=== PATIENT | female | born 2000 | race Asian ===

== ENCOUNTER 2020-07-19 15:09 | Emergency (ER) | payer OTHER ==
[~2020-07-19] VITALS: Ht 154.9 cm; Wt 57.2 kg
[2020-07-19] MEDS ORDERED: KETOROLAC 30 MG/1 ML ONE (15:47)
[2020-07-19] MEDS ORDERED: METOCLOPRAMIDE 5 MG/ML, 2ML ONE (15:47)
[2020-07-19] MEDS ORDERED: DIPHENHYDRAMINE 50 MG/ML, 1ML ONE (15:48)
[2020-07-19] MEDS ORDERED: DIPHENHYDRAMINE 50 MG/ML, 1ML IVPush ONE (16:00)
[2020-07-19] MEDS ORDERED: METOCLOPRAMIDE 5 MG/ML, 2ML IVPush ONE (16:00)
[2020-07-19] MEDS ORDERED: PLEASE ENTER ALLERGIES MC SCH (16:00)
[2020-07-19] MEDS ORDERED: KETOROLAC 30 MG/1 ML IVPush ONE ×2 (16:00→17:00)
[2020-07-19] MEDS ORDERED: SODIUM CHLORIDE FLUSH 10ML SYR IVF ONE (16:00)
--- NOTE | 2020-07-19 16:15 | NUR ---
PT SITTING ON BED WITH EYES CLOSED, NAD. FRIEND AT BEDSIDE. PT STATES "MEDICATIONS ARE ALREADY HELPING AND PAIN IS LESS". NO ADDITIONAL NEEDS AT THIS TIME. CALL LIGHT WITHIN REACH, FALL PRECAUTIONS IN PLACE.
--- NOTE | 2020-07-19 17:00 | NUR ---
Patient and friend given discharge instructions and they have confirmed that they understand the instructions. Patient ambulatory with steady gait.
[2020-07-19 17:01] VITALS: BP 103/58
== END 2020-07-19 17:04 | disposition home or self-care (01) ==
LOC: ED 16:45
DX: R51 Headache (principal); R42 Dizziness and giddiness
CPT/HCPCS: 70450; 96374; 96375; 99284; J1200; J1885; J2765